=== PATIENT | male | born 1980 | race Caucasian/White ===

== ENCOUNTER 2023-02-13 15:28 | Emergency (ER) | payer BC ==
[~2023-02-13] VITALS: Ht 177.8 cm; Wt 61.2 kg
[2023-02-13] MEDS ORDERED: LIDOCAINE 1% INJ 50 ML MDV IJ ONE ×2 (16:16→16:30)
[2023-02-13] MEDS ORDERED: HYDROCODONE/APAP 5/325MG TABLET ONE (16:17)
[2023-02-13] MEDS ORDERED: HYDROCODONE/APAP 5/325MG TABLET PO ONE (16:30)
[2023-02-13] MEDS ORDERED: AMOX-430 PO (17:37)
[2023-02-13 18:42] VITALS: BP 148/67; TEMP 98.4; O2SAT 100
== END 2023-02-13 18:42 | disposition home or self-care (01) ==
LOC: ER 15:33
DX: S61.412A Laceration without foreign body of left hand, initial encounter (principal); Z79.899 Other long term (current) drug therapy; Z88.5 Allergy status to narcotic agent; Z91.040 Latex allergy status; W54.0XXA Bitten by dog, initial encounter; Y93.89 Activity, other specified; Y92.89 Other specified places as the place of occurrence of the external cause; Y99.8 Other external cause status
CPT/HCPCS: 12002; 73130; 99283; A6403; J3490

== ENCOUNTER 2023-02-20 16:32 | Emergency (ER) | payer BC ==
[~2023-02-20] VITALS: Ht 177.8 cm; Wt 61.2 kg
[~2023-02-20 16:32] MED LIST: AMOX-430 PO
[2023-02-20 18:19] VITALS: BP 116/72; TEMP 98.1; O2SAT 100
== END 2023-02-20 18:20 | disposition home or self-care (01) ==
LOC: ER 16:36
DX: S61.432D Puncture wound without foreign body of left hand, subsequent encounter (principal); Z79.899 Other long term (current) drug therapy; Z88.5 Allergy status to narcotic agent; Z91.040 Latex allergy status; W54.0XXD Bitten by dog, subsequent encounter